=== PATIENT | female | born 1990 | race Caucasian/White ===

== ENCOUNTER 2016-09-22 15:52 | Emergency (ER) | payer OTHER ==
[2016-09-22] MEDS ORDERED: KETOROLAC 30 MG/ML 1 ML VIAL IM STA (16:32)
--- NOTE | 2016-09-22 16:42 | ED ---
General Adult HPI - General Chief complaint: Headache Stated complaint: Diff breathing Time Seen by Provider: 09/22/16 16:23 Source: patient Mode of arrival: ambulatory Limitations: no limitations - History of Present Illness Initial comments: Patient's a 26-year-old female presenting with headache, cough, congestion. Patient states symptoms have been off the past 2 days. Patient's been trying Mucinex without relief. She has not tried anything her headache which is mild and frontal in nature and typical for her. Patient denies sick contacts. Patient is to half pack per day of cigarettes. Patient states she did vomit one time today. Patient denies fever, chills, chest pain, shortness breath, diarrhea, dysuria. - Related Data Home Medications Medication Instructions Recorded Confirmed Acetaminophen [Tylenol] 650 mg PO Q4H PRN 09/22/16 09/22/16 Albuterol Inhaler [Ventolin Hfa 2 puff INHALATION RT-Q6H PRN 09/22/16 09/22/16 Inhaler] Albuterol Sulfate [Proair Hfa] 2 puff INHALATION RT-Q6H PRN 09/22/16 09/22/16 guaiFENesin [Mucinex] 600 mg PO Q12H PRN 09/22/16 09/22/16 Allergies Allergy/AdvReac Type Severity Reaction Status Date / Time acetaminophen Allergy Unknown Verified 09/22/16 16:29 [From Darvocet-N] propoxyphene napsylate Allergy Unknown Verified 09/22/16 16:27 [From Darvocet-N] tramadol Allergy Unknown Verified 09/22/16 16:27 Review of Systems ROS Statement: Those systems with pertinent positive or pertinent negative responses have been documented in the HPI. Constitutional: No fever and no chills. HENT: +Congestion, no rhinorrhea and no sore throat. Eyes: No discharge and no redness. Respiratory: +cough and no shortness of breath. Cardiovascular: No chest pain and no palpitations. Gastrointestinal: No nausea, +vomiting, no abdominal pain and no diarrhea. Genitourinary: No dysuria and no hematuria. Musculoskeletal: No back pain and no arthralgias. Skin: No pallor and no rash. Neurological: No dizziness and +headaches. ROS Other: All systems not noted in ROS Statement are negative. Past Medical History Past Medical History: Asthma History of Any Multi-Drug Resistant Organisms: None Reported Past Surgical History: Orthopedic Surgery, Tonsillectomy Additional Past Surgical History / Comment(s): knee Past Psychological History: Bipolar, Schizophrenia Smoking Status: Current every day smoker Past Alcohol Use History: None Reported Past Drug Use History: None Reported General Exam - General Exam Comments Initial Comments: Constitutional: Patient appears well-developed and well-nourished. No distress. Head: Normocephalic and atraumatic. Eyes: Conjunctivae and EOM are normal. Right eye exhibits no discharge. Left eye exhibits no discharge. No scleral icterus. Ears: Bilateral TMs are normal with normal landmarks Throat: Erythematous posterior pharynx Neck: Normal range of motion. Neck supple. No cervical lymphadenopathy. Cardiovascular: Normal rate and regular rhythm. No murmur heard. Pulmonary/Chest: Effort normal and breath sounds normal. No respiratory distress. No wheezes. Abdominal: Soft. No distension. There is no tenderness. There is no rebound and no guarding. Musculoskeletal: Normal range of motion. No edema or tenderness. Neurological: Patient alert and oriented to person, place, and time. Skin: Skin is warm and dry. Not diaphoretic. Nursing notes and vitals reviewed. Limitations: no limitations Course Vital Signs 09/22/16 09/22/16 09/22/16 16:08 18:18 18:41 Temperature 98.8 F 98.2 F Pulse Rate 90 78 80 Respiratory 20 16 16 Rate Blood Pressure 107/65 123/79 136/78 O2 Sat by Pulse 98 98 97 Oximetry - Reevaluation(s) Reevaluation #1: 09/22/16 18:16 Patient resting comfortably and actually sleeping in the stretcher on reevaluation. Patient wakes up stating her head hurts. Patient describes typical headache for her that she gets treated with morphine at [facility]. Headache started yesterday. Patient offered IV hydration, Reglan and Benadryl. Patient instructed that I will not be treating her with morphine for her chronic headache today. Medical Decision Making - Medical Decision Making Patient is a well-appearing 26-year-old female with cough, congestion, headache for the past 2 days. Exam is unremarkable. Chest x-ray unremarkable. Patient resting completely better on reevaluation. Awoke patient from a sleep to see how she was doing and she requested for morphine for her headache. Patient was educated to avoid opiates for chronic headaches. I offered her IV fluids, Compazine and Benadryl for which she accepted with a family member present. Patient notified nurse shortly after that she's doing much better and wants to be discharged home. Prior to discharge, patient was resting comfortably in bed. Course of stay improved. Denies pain. Discussed physical exam and diagnostic tests with patient. Questions answered and patient is agreeable to discharge with close follow up with Primary Care Physician. Instructed to return to Emergency Department if symptoms worsen. Disposition Clinical Impression: Headache, Chest congestion Disposition: HOME SELF-CARE Condition: Good Instructions: Acute Headache (ED), Cold Symptoms (ED) Referrals: None,Stated [Primary Care Provider] - 1-2 days Andres Nieves MD [REFERRING] - 1-2 days
--- NOTE | 2016-09-22 17:17 | XR ---
EXAMINATION TYPE: XR chest 1V portable DATE OF EXAM: 09/22/2016 COMPARISON: NONE INDICATION: Pain cough congestion shortness of breath TECHNIQUE: Single frontal view of the chest is obtained. FINDINGS: The heart size is normal. The pulmonary vasculature is normal. The lungs are clear. IMPRESSION: 1. No acute pulmonary process.
[2016-09-22] MEDS ORDERED: SODIUM CHLORIDE 0.9% 1,000 ML IV STA (17:28)
[2016-09-22] MEDS ORDERED: METOCLOPRAMIDE 5 MG/ML 2 ML VIAL IVP STA (17:29)
[2016-09-22] MEDS ORDERED: diphenhydrAMINE 50 MG/ML 1 ML VIAL IVP STA (17:29)
[2016-09-22 18:20] VITALS: RESP 16; TEMP 98.2
[2016-09-22 18:42] VITALS: BP 136/78; PULSE 80
== END 2016-09-22 18:42 | disposition home or self-care (01) ==
LOC: EC 15:52
DX: R51 Headache (principal); R09.89 Other specified symptoms and signs involving the circulatory and respiratory systems; R05 Cough; F17.200 Nicotine dependence, unspecified, uncomplicated; Z88.5 Allergy status to narcotic agent; Z88.6 Allergy status to analgesic agent
CPT/HCPCS: 71010; 99284; 96374; 96375; 96372; J1200; J2765; J1885

== ENCOUNTER 2018-04-11 01:15 | Outpatient (CLI) | payer OTHER ==
[2018-04-11 02:30] VITALS: BP 139/79; PULSE 107; RESP 18; TEMP 97.3
--- NOTE | 2018-04-11 08:37 | P.MSEPDOC ---
Presenting Problems - Arrival Data Date of Arrival on Unit: 04/11/18 Time of Arrival on Unit: 01:15 Mode of Transport: Ambulatory - Complaint OB-Reason for Admission/Chief Complaint: Decreased Movement, Pain Comment: rectal pressure and decreased movement Medical History - Information : 18 Para: 1 Term: 0 : 1 Abortions: Spontaneous or Elective: 16 Number of Living Children: 1 - Gestational Age Gestational Age by LEAH (wks/days): 27 Weeks and 4 Days - History Complications: Prior Review of Systems - Review of Systems Constitutional: No problems Breast: No problems ENT: No problems Cardiovascular: No problems Respiratory: No problems Gastrointestinal: No problems Genitourinary: No problems Musculoskeletal: No problems Neurological: No problems Skin: No problems Vital Signs - Temperature Temperature: 97.3 F Temperature Source: Temporal Artery Scan - Pulse Right Brachial Pulse Rate: 107 Pulse Assessment Method: Automatic Cuff - Respirations Respiratory Rate: 18 Oxygen Delivery Method: Room Air - Blood Pressure Right Arm Blood Pressure: 139/79 Blood Pressure Mean: 99 Blood Pressure Source: Automatic Cuff Medical Screen Scoring (Pre) - Cervical Exam Dilation: 0 cm = 0 Effacement: Exam Deferred Membranes: Intact - Uterine Contractions Frequency: > 5 minutes apart = 1 Duration: N/A Intensity: N/A - Maternal Vital Signs Maternal Temperature: N/A Maternal Blood Pressure: N/A Signs of Preeclampsia: N/A Maternal Respirations: N/A - Pain Assessment Pain Location and Character: Buttock Pain Scale Used: Numeric (1 - 10) Pain Intensity: 8 Pain Description: *Acute, Pressure Pain Radiation Location: none Pain Frequency: Constant Pain Behavior: None Exhibited - Maternal Trauma Maternal Trauma: N/A - Assessment Baseline FHR: 135 Heart Rate - NICHD Category: Category I (Normal) = 0 NST: Reactive Position: N/A Station: N/A - Total Score Total Score (Pre): 1 - Level of Risk Level of Risk: Low (0-5) Physician Notification (Pre) - Physician Notified Physician Notified Date: 04/11/18 Physician Notified Time: 01:58 Physician/Practitioner Notifed:: Dr. Christianson Spoke With: Dr. Christianson New Order Received: Yes - Notification Comment Comment: discharge pt and have her call her OB tonight and find out what he wants her to do for follow up in regards to concerns that she came here for tonight Disposition - Disposition OB Disposition: Triage, Discharge to home, Written follow up instructions reviewed Discharge Date: 04/11/18 Discharge Time: 02:15 I agree with the RN Medical Screening Exam: Yes Risk & Benefit of care provided described in d/c instruction: Yes Diagnosis: FALSE LABOR AT OR AFTER 37 COMPLETED WEEKS OF GESTATION
== END 2018-04-11 02:15 | disposition home or self-care (01) ==
LOC: FBPOP 01:15
PROVIDERS: ATTEND Obstetrics & Gynecology
DX: O47.1 False labor at or after 37 completed weeks of gestation (principal); Z3A.27 27 weeks gestation of pregnancy
CPT/HCPCS: 84112; G0463; 99213